=== PATIENT | female | born 1935 | race Caucasian/White ===

== ENCOUNTER 2017-03-20 18:22 | Emergency (ER) | payer MEDICARE, OTHER ==
[~2017-03-20] VITALS: Ht 165.1 cm; Wt 49.0 kg
[~2017-03-20 18:22] MED LIST: ACET325 PO; CALC.25 PO; CYAN1000I IM; ERGO50000 PO; ESTER C; FAMO20; FAMO20 PO; FLUT44OIA INH; FOLI400 PO; HYDSUL200 PO; IRON DEXTRAN IV; METO10 PO; NAPR375ER PO; OMEP40CA12 PO; ONDA4 PO; OXYACE5T PO; PROLIA60 MG/1 ML SQ; PYRI50 PO; SUCR1SU PO; TRIA80TC TOP; VENOFER20 MG/ML IV; [UNRECOGNIZED DRUG - OTHER]
[2017-03-20 19:46] LABS: BASOPHILS ABSOLUTE AUTO 0.03 K/mm3 (0.00-0.23); BASOPHILS PERCENT AUTO 1 % (0-2); EOSINOPHILS ABSOLUTE AUTO 0.11 K/mm3 (0.00-0.68); EOSINOPHILS PERCENT AUTO 2 % (0-6); Hematocrit 36.7 % (33.0-51.0); Hemoglobin 12.2 g/dL (11.5-16.0); IMMATURE GRAN ABSOLUTE AUTO 0.08 K/mm3 (0.00-0.10); IMMATURE GRAN PERCENT AUTO 1 % (0-1); LYMPHOCYTES ABSOLUTE AUTO 1.32 K/mm3 (0.84-5.20); LYMPHOCYTES PERCENT AUTO 21 % (21-46); MONOCYTES ABSOLUTE AUTO 0.47 K/mm3 (0.16-1.47); MONOCYTES PERCENT AUTO 7 % (4-13); Mean Corpuscular HGB 30.1 pg (26.0-34.0); Mean Corpuscular HGB Conc 33.2 g/dL (31.5-36.5); Mean Corpuscular Volume 91 fL (80-100); Mean Platelet Volume 10.7 fL (9.1-12.4); NEUTROPHILS ABSOLUTE AUTO 4.44 K/mm3 (1.96-9.15); NEUTROPHILS PERCENT AUTO 69 % (41-73); Platelet Count 306 K/mm3 (150-400); RDW Coefficient Variation 14.1 % (11.7-14.2); RDW Standard Deviation 46.5 fL (35.1-46.3); Red Blood Cell Count 4.05 M/mm3 (3.80-5.20); White Blood Cell Count 6.45 K/mm3 (4.00-11.30)
[2017-03-20 20:02] LABS: Alanine Aminotransfer (ALT/SGP 93 U/L (12-78); Albumin, Blood 2.6 g/dL (3.4-5.0); Alk Phos 183 U/L (50-136); Anion Gap 6 mmol/L (6-16); Aspartate Aminotrans (AST/SGOT 95 U/L (12-37); Bilirubin, Total 0.2 mg/dL (0.1-1.0); Blood Urea Nitrogen 11 mg/dL (8-24); CO2, Blood 26 mmol/L (21-32); Calcium, Blood 7.9 mg/dL (8.5-10.1); Chloride, Blood 108 mmol/L (98-108); Creatinine, Blood 0.55 mg/dL (0.40-1.00); Globulin, Blood 2.7 g/dL (2.2-4.0); Glomerular Filtration Rate >60 (60-); Glucose, Blood 96 mg/dL (70-99); Potassium, Blood 3.7 mmol/L (3.5-5.5); Sodium, Blood 140 mmol/L (136-145); Total Protein, Blood 5.3 g/dL (6.4-8.2)
[2017-03-21] MEDS ORDERED: Zofran Odt4 MG SL (01:59)
[2017-03-21 02:27] LABS: Source, Urine Clean Catch
[2017-03-21 02:30] LABS: Bilirubin, Urine Neg (Neg); Blood, Urine Neg (Neg); Glucose Qualitative, Urine Neg (Neg); Ketones, Urine Neg (Neg); Leukocyte Esterase, Urine Neg (Neg); Nitrite, Urine Neg (Neg); Protein, Urine Neg (Neg); Specific Gravity, Urine 1.015 (1.003-1.022); Urobilinogen, Urine NORM (Normal)
[2017-03-21 02:43] LABS: Appearance, Urine Clear (Clear); Color, Urine Yellow (P-Yellow)
== END 2017-03-21 02:51 | disposition home or self-care (01) ==
LOC: ER 18:22
PROVIDERS: Emergency Medicine
DX: T14.8XXA Other injury of unspecified body region, initial encounter (principal); D64.9 Anemia, unspecified; Z90.710 Acquired absence of both cervix and uterus; Z90.49 Acquired absence of other specified parts of digestive tract; W01.0XXA Fall on same level from slipping, tripping and stumbling without subsequent striking against object, initial encounter
CPT/HCPCS: 36415; 71046; 72070; 72100; 73562-LT; 80053; 81003; 84484; 85025; 93005; 93010; 96374; 99283; J2405

== ENCOUNTER → 2017-09-15 | Outpatient (CLI) | payer MEDICARE, OTHER ==
[~2017-09-15] MED LIST changes: +Zofran Odt4 MG SL
[2017-09-15 11:09] LABS: Calcium, Urine <5.0 mg/dL (2.0-17.5); Calcium, Urine Calculation Unable to Calculate mg/24hrs (42.0-353.0); Phosphorus, Urine 46.3 mg/dL (20.0-60.0)
== END | disposition home or self-care (01) ==
LOC: OLS 09:44 → LAB SHORT 09:44 → LAB FUT 09-13 16:05
PROVIDERS: Internal Medicine
DX: E83.51 Hypocalcemia (principal)
CPT/HCPCS: 81050; 82340; 84105

== ENCOUNTER → 2017-10-02 | Outpatient (CLI) | payer MEDICARE, OTHER | END | disposition home or self-care (01) | LOC: LAB 11:49 → LAB SHORT 11:49 | PROVIDERS: Nurse Practitioner Women's Health | DX: Z12.72 Encounter for screening for malignant neoplasm of vagina (principal); Z91.89 Other specified personal risk factors, not elsewhere classified | CPT/HCPCS: 87624; G0123 ==

== ENCOUNTER → 2018-10-03 | Outpatient (CLI) | payer MEDICARE, OTHER ==
[2018-10-04 15:07] LABS: HPV 16 Negative (Negative); HPV 18 Negative (Negative); HPV OTHER HR TYPES Negative (Negative)
== END | disposition home or self-care (01) ==
LOC: LAB 12:19 → LAB SHORT 12:19
PROVIDERS: Nurse Practitioner Women's Health
DX: Z12.72 Encounter for screening for malignant neoplasm of vagina (principal); Z91.89 Other specified personal risk factors, not elsewhere classified
CPT/HCPCS: 87624; G0123

== ENCOUNTER 2018-12-25 00:55 | Emergency (ER) | payer MEDICARE, OTHER ==
[~2018-12-25] VITALS: Ht 165.1 cm; Wt 49.9 kg
[2018-12-25 01:56] LABS: BASOPHILS ABSOLUTE AUTO 0.04 K/mm3 (0.00-0.23); BASOPHILS PERCENT AUTO 1 % (0-2); EOSINOPHILS ABSOLUTE AUTO 0.19 K/mm3 (0.00-0.68); EOSINOPHILS PERCENT AUTO 3 % (0-6); Hemoglobin 12.1 g/dL (11.5-16.0); IMMATURE GRAN ABSOLUTE AUTO 0.04 K/mm3 (0.00-0.10); IMMATURE GRAN PERCENT AUTO 1 % (0-1); LYMPHOCYTES ABSOLUTE AUTO 1.53 K/mm3 (0.84-5.20); LYMPHOCYTES PERCENT AUTO 22 % (21-46); MONOCYTES ABSOLUTE AUTO 0.98 K/mm3 (0.16-1.47); MONOCYTES PERCENT AUTO 14 % (4-13); Mean Platelet Volume 10.9 fL (9.1-12.4); NEUTROPHILS ABSOLUTE AUTO 4.23 K/mm3 (1.96-9.15); NEUTROPHILS PERCENT AUTO 60 % (41-73); Platelet Count 293 K/mm3 (150-400); White Blood Cell Count 7.01 K/mm3 (4.00-11.30)
[2018-12-25 02:01] LABS: Mean Corpuscular HGB Conc 32.7 g/dL (31.5-36.5); Mean Corpuscular Volume 95 fL (80-100)
[2018-12-25 02:06] LABS: Alanine Aminotransfer (ALT/SGP 54 U/L (12-78); Albumin, Blood 2.7 g/dL (3.4-5.0); Alk Phos 205 U/L (50-136); Anion Gap 5 mmol/L (6-16); Aspartate Aminotrans (AST/SGOT 51 U/L (12-37); Bilirubin, Total 0.2 mg/dL (0.1-1.0); Blood Urea Nitrogen 15 mg/dL (8-24); Bun/Creatinine Ratio 23.5 (12.0-20.0); CO2, Blood 23 mmol/L (21-32); Calcium, Blood 6.8 mg/dL (8.5-10.1); Chloride, Blood 115 mmol/L (98-108); Creatinine, Blood 0.64 mg/dL (0.40-1.00); Globulin, Blood 2.6 g/dL (2.2-4.0); Glomerular Filtration Rate >60 (60-); Glucose, Blood 103 mg/dL (70-99); Potassium, Blood 4.1 mmol/L (3.5-5.5); Sodium, Blood 143 mmol/L (136-145); Total Protein, Blood 5.3 g/dL (6.4-8.2); Troponin I <0.015 ng/mL (0.000-0.040)
== END 2018-12-25 03:30 | disposition home or self-care (01) ==
LOC: ER 00:55
PROVIDERS: Emergency Medicine
DX: R07.9 Chest pain, unspecified (principal); Z88.5 Allergy status to narcotic agent; Z79.899 Other long term (current) drug therapy
CPT/HCPCS: 36415; 71046; 80053; 84484; 85025; 93005; 93010; 99285-25

== ENCOUNTER 2019-04-30 15:48 | Inpatient (IN) | payer MEDICARE, OTHER ==
[~2019-04-30] VITALS: Ht 162.6 cm; Wt 41.3 kg
[2019-04-30] MEDS ORDERED: PANTOPRAZOLE SO40 M2 PO (15:59)
[2019-04-30] MEDS ORDERED: POTASSIUM CHLO10 MEQ PO (15:59)
[2019-04-30] MEDS ORDERED: TORS10 PO (15:59)
[2019-04-30 16:23] LABS: BASOPHILS ABSOLUTE AUTO 0.04 K/mm3 (0.00-0.23); BASOPHILS PERCENT AUTO 0 % (0-2); EOSINOPHILS ABSOLUTE AUTO 0.05 K/mm3 (0.00-0.68); EOSINOPHILS PERCENT AUTO 1 % (0-6); Hematocrit 34.9 % (33.0-51.0); Hemoglobin 11.3 g/dL (11.5-16.0); IMMATURE GRAN ABSOLUTE AUTO 0.04 K/mm3 (0.00-0.10); IMMATURE GRAN PERCENT AUTO 0 % (0-1); LYMPHOCYTES ABSOLUTE AUTO 1.01 K/mm3 (0.84-5.20); LYMPHOCYTES PERCENT AUTO 9 % (21-46); MONOCYTES ABSOLUTE AUTO 0.92 K/mm3 (0.16-1.47); MONOCYTES PERCENT AUTO 8 % (4-13); Mean Corpuscular HGB Conc 32.4 g/dL (31.5-36.5); Mean Corpuscular Volume 90 fL (80-100); Mean Platelet Volume 11.3 fL (9.1-12.4); NEUTROPHILS ABSOLUTE AUTO 8.96 K/mm3 (1.96-9.15); NEUTROPHILS PERCENT AUTO 81 % (41-73); Platelet Count 462 K/mm3 (150-400); RDW Standard Deviation 45.7 fL (35.1-46.3); Red Blood Cell Count 3.89 M/mm3 (3.80-5.20); White Blood Cell Count 11.02 K/mm3 (4.00-11.30)
[2019-04-30 16:44] LABS: Alanine Aminotransfer (ALT/SGP 63 U/L (12-78); Albumin, Blood 2.9 g/dL (3.4-5.0); Albumin/Globulin Ratio 0.9 (0.8-1.8); Alk Phos 197 U/L (50-136); Anion Gap 6 mmol/L (6-16); Aspartate Aminotrans (AST/SGOT 74 U/L (12-37); Bilirubin, Total 0.4 mg/dL (0.1-1.0); Blood Urea Nitrogen 19 mg/dL (8-24); Bun/Creatinine Ratio 31.2 (12.0-20.0); CO2, Blood 28 mmol/L (21-32); Calcium, Blood 8.4 mg/dL (8.5-10.1); Chloride, Blood 101 mmol/L (98-108); Creatinine, Blood 0.61 mg/dL (0.40-1.00); Globulin, Blood 3.1 g/dL (2.2-4.0); Glomerular Filtration Rate >60 (60-); Glucose, Blood 156 mg/dL (70-99); Potassium, Blood 3.6 mmol/L (3.5-5.5); Sodium, Blood 135 mmol/L (136-145)
[2019-04-30 21:47] LABS: Source, Urine Clean Catch
[2019-04-30 21:51] LABS: Bilirubin, Urine Neg (Neg); Blood, Urine Neg (Neg); Glucose Qualitative, Urine Neg (Neg); Ketones, Urine Neg (Neg); Leukocyte Esterase, Urine Neg (Neg); Nitrite, Urine Neg (Neg); Protein, Urine 2+ (Neg); Urobilinogen, Urine NORM (Normal)
[2019-04-30 22:00] LABS: Appearance, Urine Clear (Clear); Bacteria Mod /hpf; Color, Urine Yellow (P-Yellow); Red Blood Cells, Urine Not Seen /hpf (0-2); Squamous Epithelial Cells Few /hpf (Few); White Blood Cells, Urine 0-2 /hpf (0-5)
[2019-05-01] MEDS ORDERED: PANT40 PO (01:23)
[2019-05-01 04:13] LABS: BASOPHILS ABSOLUTE AUTO 0.03 K/mm3 (0.00-0.23); BASOPHILS PERCENT AUTO 0 % (0-2); EOSINOPHILS PERCENT AUTO 1 % (0-6); Hematocrit 30.1 % (33.0-51.0); Hemoglobin 9.9 g/dL (11.5-16.0); IMMATURE GRAN ABSOLUTE AUTO 0.04 K/mm3 (0.00-0.10); IMMATURE GRAN PERCENT AUTO 0 % (0-1); LYMPHOCYTES ABSOLUTE AUTO 1.41 K/mm3 (0.84-5.20); LYMPHOCYTES PERCENT AUTO 15 % (21-46); MONOCYTES PERCENT AUTO 13 % (4-13); Mean Corpuscular HGB 29.5 pg (26.0-34.0); Mean Corpuscular HGB Conc 32.9 g/dL (31.5-36.5); Mean Corpuscular Volume 90 fL (80-100); Mean Platelet Volume 11.5 fL (9.1-12.4); NEUTROPHILS ABSOLUTE AUTO 6.62 K/mm3 (1.96-9.15); NEUTROPHILS PERCENT AUTO 70 % (41-73); Platelet Count 353 K/mm3 (150-400); RDW Coefficient Variation 14.1 % (11.7-14.2); RDW Standard Deviation 45.2 fL (35.1-46.3); Red Blood Cell Count 3.36 M/mm3 (3.80-5.20)
[2019-05-01 04:32] LABS: Alanine Aminotransfer (ALT/SGP 48 U/L (12-78); Albumin, Blood 2.1 g/dL (3.4-5.0); Albumin/Globulin Ratio 0.8 (0.8-1.8); Alk Phos 153 U/L (50-136); Anion Gap 4 mmol/L (6-16); Aspartate Aminotrans (AST/SGOT 69 U/L (12-37); Bilirubin, Total 0.4 mg/dL (0.1-1.0); Blood Urea Nitrogen 20 mg/dL (8-24); Bun/Creatinine Ratio 23.6 (12.0-20.0); CO2, Blood 27 mmol/L (21-32); Calcium, Blood 7.8 mg/dL (8.5-10.1); Chloride, Blood 108 mmol/L (98-108); Creatinine, Blood 0.85 mg/dL (0.40-1.00); Globulin, Blood 2.6 g/dL (2.2-4.0); Glomerular Filtration Rate >60 (60-); Glucose, Blood 102 mg/dL (70-99); Potassium, Blood 4.2 mmol/L (3.5-5.5); Sodium, Blood 139 mmol/L (136-145); Total Protein, Blood 4.7 g/dL (6.4-8.2)
--- NOTE | 2019-05-01 06:07 | NUR ---
SHIFT SUMMARY PT ER ADMIT THIS SHIFT FOR PANCREATITIS. PT IS A/OX4, VITALS ARE STABLE. SHE REPORTS SOME SORENESS IN HER ABD FROM VOMITTING BUT REPORTS HER PAIN AT A 3 (0-10) AND SHE REPORTS THAT IT IS MANAGEBLE. PT HAS HAD NO VOMITTING SINCE ARRIVING TO THE UNIT. INTERMITTENT NAUSEA THAT IS RELIEVED WITH ZOFRAN. PT IS STEADY ON HER FEET AND IS A SBA. PLAN IS FOR MCRP AND POSSIBLE COBRA TRANSFER IF ERCP IS NEEDED FOR BILILARY STONE. PT NPO. ADMISSION COMPLETE. BED IN LOWEST POSITION. CALL LIGHT WITHIN REACH. WILL CONTINUE TO MONITOR AND REPORT TO ONCOMING RN.
--- NOTE | 2019-05-01 15:56 | NUR ---
SHIFT SUMMARY - TRANSFER NOTE PT A&Ox4; FORGETFUL AT TIMES. BED ALARM IN PLACE, PT FAMILY REPORTS THAT SHE HAS BEEN GETTING UP TO BATHROOM ON HER OWN, PT EDUCATED ON FALL RISK AND TO CALL FOR ASSISTANCE. PT DENIES PAIN, CHEST PAIN/PRESSURE, SOB, NAUSEA AND DIZZINESS T/O SHIFT. PT HAS BEEN GIVEN WATER, EDUCATED PT ON TAKING SMALL SIPS, APPEARS TO BE TOLERATING WELL. BLE 2+ PITTING EDEMA NOTED, CAITLYN ALVAREZ APLIED PER ORDERS. PT RECEIVING IV FLUIDS NS AT 50ML/HR. VSS. NO OTHER ACUTE CHANGES NOTED DURING SHIFT. PT TRANSFERING TO ROOM 308, REPORT GIVEN TO BLU Lechuga RN VIA TELEPHONE.
--- NOTE | 2019-05-01 16:30 | NUR ---
TRANSFER: PT TRANSFER TO ROOM 308 FROM PCU 16. PT A+O. FAMILY AT BEDSIDE. PT 1 ASSIST OOB. BED ALARM ON FOR SAFETY. WARM BLANKETS FOR COMFORT. PT SIPPING ON CLEAR LIQUIDS. DENIES PAIN OR NAUSEA. IV INFUSING. VSS. CALL LIGHT PLACED IN REACH.
--- NOTE | 2019-05-01 18:00 | NUR ---
PT HAS BEEN STABLE SINCE TRANSFER TO MEDICAL FLOOR. PT HAS DENIED PAIN AND NAUSEA. TOLERATING SIPS CLEARS. VOIDING WELL. SBA OOB NEEDED. BED ALARM ON FOR SAFETY. IV INFUSING. CAITLYN HOSE TO BLE FOR +3 EDEMA IN LEGS. PT USES CALL LIGHT APPROPRIATELY FOR THIS RN.
[2019-05-02 04:50] LABS: BASOPHILS ABSOLUTE AUTO 0.03 K/mm3 (0.00-0.23); BASOPHILS PERCENT AUTO 0 % (0-2); EOSINOPHILS ABSOLUTE AUTO 0.17 K/mm3 (0.00-0.68); EOSINOPHILS PERCENT AUTO 2 % (0-6); Hematocrit 29.1 % (33.0-51.0); Hemoglobin 9.6 g/dL (11.5-16.0); IMMATURE GRAN ABSOLUTE AUTO 0.05 K/mm3 (0.00-0.10); IMMATURE GRAN PERCENT AUTO 1 % (0-1); LYMPHOCYTES PERCENT AUTO 10 % (21-46); MONOCYTES PERCENT AUTO 15 % (4-13); Mean Corpuscular HGB 29.3 pg (26.0-34.0); Mean Corpuscular Volume 89 fL (80-100); Mean Platelet Volume 11.6 fL (9.1-12.4); NEUTROPHILS PERCENT AUTO 73 % (41-73); Platelet Count 351 K/mm3 (150-400); RDW Standard Deviation 45.5 fL (35.1-46.3); Red Blood Cell Count 3.28 M/mm3 (3.80-5.20); White Blood Cell Count 9.65 K/mm3 (4.00-11.30)
--- NOTE | 2019-05-02 04:56 | NUR ---
NOC SHIFT SUMMARY PT IS PLEASANT AND COOPERATIVE WITH CARE. AAOX4, RESP EVEN AND UNLABORED. TREATED FOR ABD PAIN ONCE THIS NIGHT PER EMAR TO GOOD EFFECT. PT WAS ABLE TO GO TO SLEEP AND HAS SLEPT MUCH OF THE NIGHT. NO FURTHER COMPLAINTS OF PAIN OR DISCOMFORT. VSS. PRESENTLY SLEEPING AND APPEARS IN NO ACUTE DISTRESS. WILL CONTINUE TO MONITOR.
[2019-05-02 07:46] LABS: Calcium, Blood 7.6 mg/dL (8.5-10.1); Magnesium, Blood 1.8 mg/dL (1.6-2.4); Phosphorus, Blood 3.6 mg/dL (2.5-4.9)
--- NOTE | 2019-05-02 11:15 | NUR ---
L AC IV REMOVED 20G IV TO THE L AC REMOVED AT 1100 DUE TO LEAKAGE.
--- NOTE | 2019-05-02 16:39 | NUR ---
SHIFT SUMMARY PT TOLERATED CLEAR LIQUID DIET AND ADVANCED TO FULL LIQUID. PT GIVEN NEW IV THIS SHIFT. TOLERATING 50ML/HR OF NS AT THIS TIME. PT STATES PAIN HAS IMPROVED SINCE ADMISSION. ONLY REPORTS PAIN ON [place]. DENIES NEED FOR PAIN MEDS AT THIS TIME. NO OTHER CHANGES IN ASSESSMENT AT THIS TIME. VSS. WILL CONTINUE TO MONITOR UNTIL TURNOVER IS COMPLETE.
--- NOTE | 2019-05-02 17:52 | NUR ---
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 She has a onrbert zita and feels well loved and supported by friends. Spouse passed quite a while ago and she has managed well on her own. She understands her illness and beleives she is improving. No concerns presented. Evelyn responded well to companionship and theraputic listening. We prayed together for continued healing and she expressed gratitude for God's presence in her life. She expects to be discharged in a day or two. [employer] services will remain available.
--- NOTE | 2019-05-03 00:09 | NUR ---
HELPED PT UP TO TOILET. BACK IN BED NOW WITH CPAP ON SATTING MID 'S
--- NOTE | 2019-05-03 03:13 | NUR ---
NOC SHIFT SUMMARY PT IS PLEASANT AND COOPERATIVE WITH CARE. UP TO RESTROOM TO VOID MULTIPLE TIMES THIS NIGHT. 1 ASSIST SHE IS A BIT UNSTEADY ON HER FEET. AAOX4. CONTINENT OF BOWEL AND BLADDER. COMPLAINED OF NAUSEA AND STOMACH DISCOMFORT ONCE THIS NIGHT. TREATED PER EMAR TO GOOD EFFECT. AT THIS TIME SHE IS BACK IN BED WITH CPAP AND CONT PULSE OX ON. APPEARS IN NO ACUTE DISTRESS AND VOICES NO NEEDS. WILL CONTINUE TO MONITOR.
[2019-05-03 05:10] LABS: BASOPHILS ABSOLUTE AUTO 0.03 K/mm3 (0.00-0.23); BASOPHILS PERCENT AUTO 0 % (0-2); EOSINOPHILS ABSOLUTE AUTO 0.24 K/mm3 (0.00-0.68); EOSINOPHILS PERCENT AUTO 3 % (0-6); Hematocrit 28.2 % (33.0-51.0); Hemoglobin 9.1 g/dL (11.5-16.0); IMMATURE GRAN ABSOLUTE AUTO 0.05 K/mm3 (0.00-0.10); IMMATURE GRAN PERCENT AUTO 1 % (0-1); LYMPHOCYTES ABSOLUTE AUTO 1.03 K/mm3 (0.84-5.20); LYMPHOCYTES PERCENT AUTO 13 % (21-46); MONOCYTES ABSOLUTE AUTO 1.21 K/mm3 (0.16-1.47); MONOCYTES PERCENT AUTO 15 % (4-13); Mean Corpuscular HGB 28.6 pg (26.0-34.0); Mean Corpuscular HGB Conc 32.3 g/dL (31.5-36.5); Mean Corpuscular Volume 89 fL (80-100); Mean Platelet Volume 11.4 fL (9.1-12.4); NEUTROPHILS ABSOLUTE AUTO 5.38 K/mm3 (1.96-9.15); NEUTROPHILS PERCENT AUTO 68 % (41-73); Platelet Count 330 K/mm3 (150-400); RDW Coefficient Variation 14.1 % (11.7-14.2); RDW Standard Deviation 45.5 fL (35.1-46.3); Red Blood Cell Count 3.18 M/mm3 (3.80-5.20); White Blood Cell Count 7.94 K/mm3 (4.00-11.30)
[2019-05-03 05:24] LABS: Anion Gap 7 mmol/L (6-16); Blood Urea Nitrogen 15 mg/dL (8-24); Bun/Creatinine Ratio 23.4 (12.0-20.0); CO2, Blood 25 mmol/L (21-32); Calcium, Blood 7.8 mg/dL (8.5-10.1); Chloride, Blood 107 mmol/L (98-108); Creatinine, Blood 0.64 mg/dL (0.40-1.00); Glomerular Filtration Rate >60 (60-); Glucose, Blood 89 mg/dL (70-99); Magnesium, Blood 1.8 mg/dL (1.6-2.4); Phosphorus, Blood 3.3 mg/dL (2.5-4.9); Potassium, Blood 3.9 mmol/L (3.5-5.5); Sodium, Blood 139 mmol/L (136-145)
[2019-05-03] MEDS ORDERED: ONDA4ODT MM (10:10)
--- NOTE | 2019-05-03 11:06 | NUR ---
PT DISCHARGED. PT DISCHARGED AT 1100. PT IN STABLE CONDITION. DENIES ABD PAIN & TOLERATED SOFT FOODS WELL THIS AM. NO CHANGES IN ASSESSMENT PRIOR TO DC. PT & SISTER EDUCATED ON DC INSTRUCTIONS AND GIVEN [facility] NEW PATIENT PACKET SO THAT PT CAN GET A PCP ESTABLISHED. PT WHEELED OUT BY JAMAL AND TO BE DRIVEN HOME BY SISTER.
== END 2019-05-03 11:07 | disposition home or self-care (01) | DRG 439 ==
LOC: ER 15:48 → PCU 22:30 → ERHOLD 22:30 → MEDS 22:30 → PCU 05-01 00:54 → MEDS 05-01 16:23 → ENPENDDIS 05-03 09:55 → MEDS 05-03 11:07
PROVIDERS: Hospitalist; Internal Medicine; Nurse Practitioner Acute Care; Physician Assistant; ADMIT Hospitalist
DX: K85.90 Acute pancreatitis without necrosis or infection, unspecified (principal); K80.51 Calculus of bile duct without cholangitis or cholecystitis with obstruction; G47.33 Obstructive sleep apnea (adult) (pediatric); K21.9 Gastro-esophageal reflux disease without esophagitis; M06.9 Rheumatoid arthritis, unspecified; M81.0 Age-related osteoporosis without current pathological fracture; R60.0 Localized edema; K90.0 Celiac disease; K22.2 Esophageal obstruction; Z86.73 Personal history of transient ischemic attack (TIA), and cerebral infarction without residual deficits; Z87.11 Personal history of peptic ulcer disease; Z88.5 Allergy status to narcotic agent
CPT/HCPCS: 36415; 74022; 74181; 76705; 80048; 80053; 81001; 82310; 83690; 83735; 84100; 85025; 87077; 87086; 87186; 93005; 93010; 94762; 96361; 96374; 96375; 99285-25; J1885; J2405; J2765; J7030

== ENCOUNTER 2019-10-17 13:01 | Observation (INO) | payer MEDICARE, OTHER ==
[~2019-10-17] VITALS: Ht 165.1 cm; Wt 55.8 kg
[~2019-10-17 13:01] MED LIST changes: +ONDA4ODT MM; +PANT40 PO; +POTASSIUM CHLO10 MEQ PO
[2019-10-17 13:53] LABS: BASOPHILS ABSOLUTE AUTO 0.05 K/mm3 (0.00-0.23); BASOPHILS PERCENT AUTO 1 % (0-2); EOSINOPHILS PERCENT AUTO 3 % (0-6); Hematocrit 35.7 % (33.0-51.0); Hemoglobin 11.6 g/dL (11.5-16.0); IMMATURE GRAN ABSOLUTE AUTO 0.04 K/mm3 (0.00-0.10); IMMATURE GRAN PERCENT AUTO 1 % (0-1); LYMPHOCYTES ABSOLUTE AUTO 1.32 K/mm3 (0.84-5.20); LYMPHOCYTES PERCENT AUTO 17 % (21-46); MONOCYTES ABSOLUTE AUTO 1.02 K/mm3 (0.16-1.47); MONOCYTES PERCENT AUTO 14 % (4-13); Mean Corpuscular HGB 31.3 pg (26.0-34.0); Mean Corpuscular HGB Conc 32.5 g/dL (31.5-36.5); Mean Corpuscular Volume 96 fL (80-100); Mean Platelet Volume 10.4 fL (9.1-12.4); NEUTROPHILS ABSOLUTE AUTO 4.95 K/mm3 (1.96-9.15); NEUTROPHILS PERCENT AUTO 65 % (41-73); Platelet Count 325 K/mm3 (150-400); RDW Coefficient Variation 13.4 % (11.7-14.2); RDW Standard Deviation 47.9 fL (35.1-46.3); Red Blood Cell Count 3.71 M/mm3 (3.80-5.20); White Blood Cell Count 7.58 K/mm3 (4.00-11.30)
[2019-10-17 14:01] LABS: Source, Urine Clean Catch
[2019-10-17 14:02] LABS: Bilirubin, Urine Neg (Neg); Blood, Urine Neg (Neg); Glucose Qualitative, Urine Neg (Neg); Ketones, Urine Neg (Neg); Leukocyte Esterase, Urine 1+ (Neg); Nitrite, Urine Pos (Neg); Protein, Urine Neg (Neg); Specific Gravity, Urine 1.015 (1.003-1.022); Urobilinogen, Urine NORM (Normal)
[2019-10-17 14:11] LABS: Appearance, Urine Clear (Clear); Color, Urine Yellow (P-Yellow)
[2019-10-17 14:12] LABS: Bacteria Many /hpf; Red Blood Cells, Urine 0-2 /hpf (0-2); Squamous Epithelial Cells Rare /hpf (Few)
[2019-10-17 14:17] LABS: Alanine Aminotransfer (ALT/SGP 32 U/L (12-78); Albumin, Blood 2.9 g/dL (3.4-5.0); Alk Phos 123 U/L (50-136); Anion Gap 7 mmol/L (6-16); Aspartate Aminotrans (AST/SGOT 34 U/L (12-37); Bilirubin, Total 0.2 mg/dL (0.1-1.0); Blood Urea Nitrogen 20 mg/dL (8-24); Bun/Creatinine Ratio 33.2 (12.0-20.0); CO2, Blood 25 mmol/L (21-32); Calcium, Blood 8.1 mg/dL (8.5-10.1); Chloride, Blood 107 mmol/L (98-108); Glomerular Filtration Rate >60 (60-); Glucose, Blood 89 mg/dL (70-99); Potassium, Blood 4.2 mmol/L (3.5-5.5); Sodium, Blood 139 mmol/L (136-145); Total Protein, Blood 5.9 g/dL (6.4-8.2); Troponin I <0.015 ng/mL (0.000-0.040)
[2019-10-17] MEDS ORDERED: CYAN1000I SC (16:03)
[2019-10-17] MEDS ORDERED: PANTOPRAZOLE SO40 M2 PO (16:05)
[2019-10-17] MEDS ORDERED: FOLI1 PO (16:06)
[2019-10-17] MEDS ORDERED: CALC.25 PO (16:07)
[2019-10-17] MEDS ORDERED: TORS10 PO (16:07)
[2019-10-17] MEDS ORDERED: Vitamin D2000 UNIT PO (16:25)
[2019-10-17] MEDS ORDERED: TRIA15CR3 TOP (16:26)
[2019-10-17] MEDS ORDERED: CALCIUM PO (16:31)
[2019-10-17] MEDS ORDERED: [UNRECOGNIZED DRUG - OTHER] PO (16:31)
[2019-10-17] MEDS ORDERED: CALCIUM CITRAT PO (16:33)
--- NOTE | 2019-10-17 17:51 | NUR ---
RECEIVED REPORT FROM THIERRY NUÑEZ RN, AT 1750. PATIENT TO BE TRANSFERED TO ROOM 362.
--- NOTE | 2019-10-17 22:46 | NUR ---
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 2114 RT--MAGNO AT SIDE AND SET UP PTS BIPAP AND BIOX; DENIES PAIN OR NAUSEA.
[2019-10-18 02:03] LABS: BASOPHILS ABSOLUTE AUTO 0.06 K/mm3 (0.00-0.23); BASOPHILS PERCENT AUTO 1 % (0-2); EOSINOPHILS ABSOLUTE AUTO 0.29 K/mm3 (0.00-0.68); EOSINOPHILS PERCENT AUTO 4 % (0-6); Hematocrit 36.7 % (33.0-51.0); IMMATURE GRAN ABSOLUTE AUTO 0.07 K/mm3 (0.00-0.10); IMMATURE GRAN PERCENT AUTO 1 % (0-1); LYMPHOCYTES ABSOLUTE AUTO 2.23 K/mm3 (0.84-5.20); LYMPHOCYTES PERCENT AUTO 27 % (21-46); MONOCYTES ABSOLUTE AUTO 1.06 K/mm3 (0.16-1.47); MONOCYTES PERCENT AUTO 13 % (4-13); Mean Corpuscular HGB 31.6 pg (26.0-34.0); Mean Corpuscular HGB Conc 32.7 g/dL (31.5-36.5); Mean Corpuscular Volume 97 fL (80-100); NEUTROPHILS ABSOLUTE AUTO 4.49 K/mm3 (1.96-9.15); NEUTROPHILS PERCENT AUTO 55 % (41-73); Platelet Count 316 K/mm3 (150-400); RDW Coefficient Variation 13.3 % (11.7-14.2); RDW Standard Deviation 47.5 fL (35.1-46.3)
[2019-10-18 02:16] LABS: Alanine Aminotransfer (ALT/SGP 25 U/L (12-78); Albumin, Blood 2.9 g/dL (3.4-5.0); Alk Phos 97 U/L (50-136); Anion Gap 4 mmol/L (6-16); Aspartate Aminotrans (AST/SGOT 27 U/L (12-37); Bilirubin, Total 0.3 mg/dL (0.1-1.0); Blood Urea Nitrogen 16 mg/dL (8-24); Bun/Creatinine Ratio 23.3 (12.0-20.0); CO2, Blood 30 mmol/L (21-32); Calcium, Blood 8.2 mg/dL (8.5-10.1); Chloride, Blood 107 mmol/L (98-108); Creatinine, Blood 0.69 mg/dL (0.40-1.00); Globulin, Blood 2.8 g/dL (2.2-4.0); Glomerular Filtration Rate >60 (60-); Glucose, Blood 101 mg/dL (70-99); Potassium, Blood 4.1 mmol/L (3.5-5.5); Sodium, Blood 141 mmol/L (136-145); Total Protein, Blood 5.7 g/dL (6.4-8.2); Troponin I <0.015 ng/mL (0.000-0.040)
--- NOTE | 2019-10-18 04:35 | NUR ---
SHIFT SUMMARY: 83 Y/O FEMALE RESTED COMFORTABLY ALL SHIFT; DENIES PAIN OR NAUSEA; WEARING BIPAP ALL SHIFT; ALERT AND ORIENTED X 4; BED LOW POSITION WITH CALL LIGHT AT SIDE.
--- NOTE | 2019-10-18 08:30 | NUR ---
PT PLEASANT COOP A/O. STATES SOME H/ACHE, WILL MED PER EMAR. 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 STATES NO CHEST PN, DISCOMFORT EXCEPT HEADACHE. H/R REG, MURMER NOTED. PER TELE. NSR AT 76, LUNGS CLEAR, RESP EASY, UNLABORED. ON R/A. BT X4 LAST BM YEST. VOIDS SBA TO BATHROOM. BED IN LOW POSITION, CALL LITE IN REACH, CALLS APPROP
--- NOTE | 2019-10-18 12:25 | NUR ---
DR SUBHASH CHAPIN ASKED TO [facility] FOR 7 DAYS. CALLED [facility] TO FAX. SHE TO DO. SPOKE TO H/C PERSON PLACING PATCH. ADVISED.
--- NOTE | 2019-10-18 13:51 | NUR ---
Upon receiving an admit referral for spiritual care, I visit patient. Patient's sister Ladi is bedside. Patient tells me about her medical issues, her family and career history and about her restorationism tradition (Orthodoxy). Patient tell me that she is in the DC process. No spiritual distress is detected but patient is clearly encouraged by conversations centered around her zita. I listen empathically and povide prayer. Patient and sister respond well and show signs of an elevated mood.
[2019-10-18] MEDS ORDERED: CIPR500 PO (14:25)
--- NOTE | 2019-10-18 15:07 | NUR ---
DISCHARGE REVIEWD WITH PT AND SISTER. PT VERBALIZED UNDERSTANDING MEDS AND INST. HAS BEEN EDUCATED ON ZIOPATCH PER H/CTR. IV PULLED INTACT. TELE REMOVED. PT DRESSING SELF
--- NOTE | 2019-10-18 15:08 | NUR ---
PT STATES WHILE SITTING UP IS SOME DIZZY. VS 138/81 P 76, LAST TELE WAS NS AT 76. TELE JUST RETURNED. PT STATES IS OKAY. BUT CALLING DR CRAMER TO CHECK.
--- NOTE | 2019-10-18 15:48 | NUR ---
SPOKE TO DR BONDS. STARKEY TO Robbin Mike WHEELED PT TO DOOR AT 1540. ASSISTED TO AUTO.
== END 2019-10-18 15:01 | disposition home or self-care (01) ==
LOC: ER 13:01 → MEDS 13:02
PROVIDERS: Emergency Medicine; ADMIT Family Medicine
DX: R00.2 Palpitations (principal); R42 Dizziness and giddiness; I10 Essential (primary) hypertension; K21.9 Gastro-esophageal reflux disease without esophagitis; G47.33 Obstructive sleep apnea (adult) (pediatric); Z88.5 Allergy status to narcotic agent
CPT/HCPCS: 36415; 71046; 80053; 81001; 83880; 84484; 85025; 87077; 87086; 87186; 93005; 93010; 93308; 94762; 96372; 96374; 99285-25; A9270; A9270-GY; G0378; J1650; J7030

== ENCOUNTER → 2020-02-11 | Outpatient (CLI) | payer MEDICARE, OTHER ==
[~2020-02-11] MED LIST changes: +ACET325; +CALCIUM CITRAT PO; +CALCIUM PO; +CIPR500 PO; +CYAN1000I SC; +FOLI1 PO; +METOPROLOL SUCC25 MG PO; +Nitrostat0.4 MG SL; +PANTOPRAZOLE SO40 M2 PO; +Pepcid20 MG PO; +TORS10 PO; +TRIA15CR3 TOP; +Vitamin D2000 UNIT PO; +[UNRECOGNIZED DRUG - OTHER] PO
[2020-02-12 18:35] LABS: CORONAVIRUS (COVID19) CSH-NRL Negative (Negative)
== END | disposition home or self-care (01) ==
LOC: LAB SHORT 09:44 → LAB UCHC 09:44
PROVIDERS: Physician Assistant
DX: Z20.828 Contact with and (suspected) exposure to other viral communicable diseases (principal)
CPT/HCPCS: U0003

== ENCOUNTER 2020-02-25 03:36 | Emergency (ER) | payer MEDICARE, OTHER ==
[~2020-02-25] VITALS: Ht 165.1 cm; Wt 55.3 kg
[~2020-02-25 03:36] MED LIST changes: -ACET325; -METOPROLOL SUCC25 MG PO; -Nitrostat0.4 MG SL; -Pepcid20 MG PO
[2020-02-25 04:02] LABS: BASOPHILS ABSOLUTE AUTO 0.06 K/mm3 (0.00-0.23); BASOPHILS PERCENT AUTO 1 % (0-2); EOSINOPHILS ABSOLUTE AUTO 0.29 K/mm3 (0.00-0.68); EOSINOPHILS PERCENT AUTO 4 % (0-6); Hematocrit 37.5 % (33.0-51.0); Hemoglobin 12.1 g/dL (11.5-16.0); IMMATURE GRAN ABSOLUTE AUTO 0.06 K/mm3 (0.00-0.10); IMMATURE GRAN PERCENT AUTO 1 % (0-1); LYMPHOCYTES ABSOLUTE AUTO 1.97 K/mm3 (0.84-5.20); LYMPHOCYTES PERCENT AUTO 25 % (21-46); MONOCYTES ABSOLUTE AUTO 1.21 K/mm3 (0.16-1.47); MONOCYTES PERCENT AUTO 15 % (4-13); Mean Corpuscular HGB 31.4 pg (26.0-34.0); Mean Corpuscular HGB Conc 32.3 g/dL (31.5-36.5); Mean Corpuscular Volume 97 fL (80-100); Mean Platelet Volume 10.7 fL (9.1-12.4); NEUTROPHILS ABSOLUTE AUTO 4.36 K/mm3 (1.96-9.15); NEUTROPHILS PERCENT AUTO 55 % (41-73); Platelet Count 287 K/mm3 (150-400); RDW Coefficient Variation 15.1 % (11.7-14.2); RDW Standard Deviation 54.9 fL (35.1-46.3); Red Blood Cell Count 3.85 M/mm3 (3.80-5.20); White Blood Cell Count 7.95 K/mm3 (4.00-11.30)
[2020-02-25] MEDS ORDERED: ACET325 (04:13)
[2020-02-25] MEDS ORDERED: METOPROLOL SUCC25 MG PO (04:13)
[2020-02-25 04:25] LABS: Alanine Aminotransfer (ALT/SGP 27 U/L (12-78); Albumin, Blood 3.1 g/dL (3.4-5.0); Alk Phos 130 U/L (50-136); Anion Gap 6 mmol/L (6-16); Aspartate Aminotrans (AST/SGOT 24 U/L (12-37); Bilirubin, Total 0.2 mg/dL (0.1-1.0); Blood Urea Nitrogen 15 mg/dL (8-24); Bun/Creatinine Ratio 23.8 (12.0-20.0); CO2, Blood 29 mmol/L (21-32); Calcium, Blood 8.5 mg/dL (8.5-10.1); Chloride, Blood 103 mmol/L (98-108); Creatinine, Blood 0.63 mg/dL (0.40-1.00); Globulin, Blood 3.1 g/dL (2.2-4.0); Glomerular Filtration Rate >60 (60-); Glucose, Blood 96 mg/dL (70-99); Potassium, Blood 4.3 mmol/L (3.5-5.5); Sodium, Blood 138 mmol/L (136-145); Total Protein, Blood 6.2 g/dL (6.4-8.2); Troponin I <0.015 ng/mL (0.000-0.040)
[2020-02-25] MEDS ORDERED: Nitrostat0.4 MG SL (08:08)
[2020-02-25] MEDS ORDERED: Pepcid20 MG PO (08:08)
== END 2020-02-25 09:15 | disposition home or self-care (01) ==
LOC: ER 03:36
PROVIDERS: Emergency Medicine
DX: R07.89 Other chest pain (principal); R06.02 Shortness of breath; Z88.5 Allergy status to narcotic agent; Z91.02 Food additives allergy status; Z79.899 Other long term (current) drug therapy
CPT/HCPCS: 36415; 71046; 80053; 83690; 83880; 84484; 85025; 93005; 93010; 99285-25

== ENCOUNTER 2020-06-16 03:38 | Emergency (ER) | payer MEDICARE, OTHER ==
[~2020-06-16] VITALS: Ht 165.1 cm; Wt 54.4 kg
[~2020-06-16 03:38] MED LIST changes: +ACET325; +METOPROLOL SUCC25 MG PO; +Nitrostat0.4 MG SL; +Pepcid20 MG PO
[2020-06-16 04:50] LABS: BASOPHILS ABSOLUTE AUTO 0.04 K/mm3 (0.00-0.23); BASOPHILS PERCENT AUTO 1 % (0-2); EOSINOPHILS ABSOLUTE AUTO 0.19 K/mm3 (0.00-0.68); EOSINOPHILS PERCENT AUTO 2 % (0-6); Hematocrit 31.2 % (33.0-51.0); Hemoglobin 10.6 g/dL (11.5-16.0); IMMATURE GRAN ABSOLUTE AUTO 0.03 K/mm3 (0.00-0.10); IMMATURE GRAN PERCENT AUTO 0 % (0-1); LYMPHOCYTES PERCENT AUTO 15 % (21-46); MONOCYTES ABSOLUTE AUTO 1.13 K/mm3 (0.16-1.47); MONOCYTES PERCENT AUTO 13 % (4-13); Mean Corpuscular HGB 30.8 pg (26.0-34.0); Mean Corpuscular Volume 91 fL (80-100); Mean Platelet Volume 10.5 fL (9.1-12.4); NEUTROPHILS ABSOLUTE AUTO 5.73 K/mm3 (1.96-9.15); NEUTROPHILS PERCENT AUTO 68 % (41-73); Platelet Count 346 K/mm3 (150-400); RDW Coefficient Variation 14.7 % (11.7-14.2); RDW Standard Deviation 48.5 fL (35.1-46.3); Red Blood Cell Count 3.44 M/mm3 (3.80-5.20); White Blood Cell Count 8.42 K/mm3 (4.00-11.30)
[2020-06-16 05:09] LABS: Alanine Aminotransfer (ALT/SGP 39 U/L (12-78); Albumin, Blood 2.6 g/dL (3.4-5.0); Albumin/Globulin Ratio 0.9 (0.8-1.8); Alk Phos 170 U/L (50-136); Anion Gap 5 mmol/L (6-16); Aspartate Aminotrans (AST/SGOT 44 U/L (12-37); Bilirubin, Total 0.3 mg/dL (0.1-1.0); Blood Urea Nitrogen 7 mg/dL (8-24); Bun/Creatinine Ratio 14.2 (12.0-20.0); C-Reactive Protein, High Sens. 0.219 mg/L (0.000-3.000); CO2, Blood 28 mmol/L (21-32); Chloride, Blood 102 mmol/L (98-108); Creatinine, Blood 0.49 mg/dL (0.40-1.00); Globulin, Blood 2.9 g/dL (2.2-4.0); Glomerular Filtration Rate >60 (60-); Glucose, Blood 104 mg/dL (70-99); Potassium, Blood 4.1 mmol/L (3.5-5.5); Sodium, Blood 135 mmol/L (136-145); Total Protein, Blood 5.5 g/dL (6.4-8.2)
== END 2020-06-16 05:54 | disposition home or self-care (01) ==
LOC: ER 03:38
PROVIDERS: Emergency Medicine
DX: M25.011 Hemarthrosis, right shoulder (principal); Z79.899 Other long term (current) drug therapy; Z88.5 Allergy status to narcotic agent; Z88.8 Allergy status to other drugs, medicaments and biological substances; Z74.09 Other reduced mobility
CPT/HCPCS: 36415; 73030; 80053; 85025; 85651; 86141; 96374; 96375; 99283-25; A9270; J2405; J3010

== ENCOUNTER 2020-08-08 17:29 | Emergency (ER) | payer MEDICARE, OTHER ==
[~2020-08-08] VITALS: Ht 165.1 cm; Wt 59.0 kg
[2020-08-08 18:19] LABS: BASOPHILS ABSOLUTE AUTO 0.05 K/mm3 (0.00-0.23); BASOPHILS PERCENT AUTO 1 % (0-2); EOSINOPHILS ABSOLUTE AUTO 0.18 K/mm3 (0.00-0.68); EOSINOPHILS PERCENT AUTO 2 % (0-6); Hematocrit 33.8 % (33.0-51.0); Hemoglobin 11.1 g/dL (11.5-16.0); IMMATURE GRAN ABSOLUTE AUTO 0.03 K/mm3 (0.00-0.10); IMMATURE GRAN PERCENT AUTO 0 % (0-1); LYMPHOCYTES ABSOLUTE AUTO 1.05 K/mm3 (0.84-5.20); LYMPHOCYTES PERCENT AUTO 12 % (21-46); MONOCYTES PERCENT AUTO 11 % (4-13); Mean Corpuscular HGB 29.1 pg (26.0-34.0); Mean Corpuscular HGB Conc 32.8 g/dL (31.5-36.5); Mean Corpuscular Volume 89 fL (80-100); Mean Platelet Volume 10.4 fL (9.1-12.4); NEUTROPHILS ABSOLUTE AUTO 6.44 K/mm3 (1.96-9.15); NEUTROPHILS PERCENT AUTO 74 % (41-73); Platelet Count 330 K/mm3 (150-400); RDW Coefficient Variation 15.3 % (11.7-14.2); RDW Standard Deviation 49.9 fL (35.1-46.3); Red Blood Cell Count 3.82 M/mm3 (3.80-5.20); White Blood Cell Count 8.75 K/mm3 (4.00-11.30)
[2020-08-08 18:41] LABS: Alanine Aminotransfer (ALT/SGP 45 U/L (12-78); Albumin, Blood 3.3 g/dL (3.4-5.0); Albumin/Globulin Ratio 1.2 (0.8-1.8); Alk Phos 146 U/L (50-136); Anion Gap 6 mmol/L (6-16); Aspartate Aminotrans (AST/SGOT 45 U/L (12-37); Bilirubin, Total 0.3 mg/dL (0.1-1.0); Blood Urea Nitrogen 15 mg/dL (8-24); Bun/Creatinine Ratio 21.6 (12.0-20.0); CO2, Blood 21 mmol/L (21-32); Calcium, Blood 8.6 mg/dL (8.5-10.1); Chloride, Blood 111 mmol/L (98-108); Creatinine, Blood 0.69 mg/dL (0.40-1.00); Globulin, Blood 2.8 g/dL (2.2-4.0); Glomerular Filtration Rate >60 (60-); Glucose, Blood 109 mg/dL (70-99); Potassium, Blood 4.3 mmol/L (3.5-5.5); Sodium, Blood 138 mmol/L (136-145); Total Protein, Blood 6.1 g/dL (6.4-8.2)
[2020-08-08 19:57] LABS: Source, Urine Voided
[2020-08-08 20:00] LABS: Bilirubin, Urine Neg (Neg); Blood, Urine Neg (Neg); Glucose Qualitative, Urine Neg (Neg); Ketones, Urine Neg (Neg); Leukocyte Esterase, Urine 1+ (Neg); Nitrite, Urine Pos (Neg); Protein, Urine Neg (Neg); Specific Gravity, Urine 1.015 (1.003-1.022); Urobilinogen, Urine NORM (Normal)
[2020-08-08 20:06] LABS: Appearance, Urine Hazy (Clear); Color, Urine Yellow (P-Yellow)
[2020-08-08 20:13] LABS: Bacteria Many /hpf; Red Blood Cells, Urine Not Seen /hpf (0-2); Squamous Epithelial Cells Few /hpf (Few); White Blood Cells, Urine 0-2 /hpf (0-5)
== END 2020-08-08 20:16 | disposition home or self-care (01) ==
LOC: ER 17:29
PROVIDERS: Emergency Medicine
DX: R41.0 Disorientation, unspecified (principal); Z91.018 Allergy to other foods; Z79.899 Other long term (current) drug therapy; W01.10XA Fall on same level from slipping, tripping and stumbling with subsequent striking against unspecified object, initial encounter
CPT/HCPCS: 36415; 70450; 80053; 81001; 85025; 87077; 87086; 87186; 93005; 93010; 99284-25; J7030

== ENCOUNTER → 2020-09-22 | Outpatient (CLI) | payer MEDICARE, OTHER ==
[2020-09-22 13:47] LABS: BASOPHILS ABSOLUTE AUTO 0.04 K/mm3 (0.00-0.23); BASOPHILS PERCENT AUTO 1 % (0-2); EOSINOPHILS ABSOLUTE AUTO 0.23 K/mm3 (0.00-0.68); EOSINOPHILS PERCENT AUTO 3 % (0-6); Hematocrit 36.6 % (33.0-51.0); IMMATURE GRAN ABSOLUTE AUTO 0.02 K/mm3 (0.00-0.10); IMMATURE GRAN PERCENT AUTO 0 % (0-1); LYMPHOCYTES ABSOLUTE AUTO 1.73 K/mm3 (0.84-5.20); LYMPHOCYTES PERCENT AUTO 24 % (21-46); MONOCYTES ABSOLUTE AUTO 0.95 K/mm3 (0.16-1.47); MONOCYTES PERCENT AUTO 13 % (4-13); Mean Corpuscular HGB 29.1 pg (26.0-34.0); Mean Corpuscular HGB Conc 32.8 g/dL (31.5-36.5); Mean Corpuscular Volume 89 fL (80-100); Mean Platelet Volume 11.4 fL (9.1-12.4); NEUTROPHILS ABSOLUTE AUTO 4.21 K/mm3 (1.96-9.15); NEUTROPHILS PERCENT AUTO 59 % (41-73); Platelet Count 278 K/mm3 (150-400); RDW Coefficient Variation 20.5 % (11.7-14.2); RDW Standard Deviation 66.8 fL (35.1-46.3); Red Blood Cell Count 4.13 M/mm3 (3.80-5.20); White Blood Cell Count 7.18 K/mm3 (4.00-11.30)
[2020-09-22 13:52] LABS: Anion Gap 8 mmol/L (6-16); Blood Urea Nitrogen 13 mg/dL (8-24); Bun/Creatinine Ratio 18.6 (12.0-20.0); CO2, Blood 23 mmol/L (21-32); Calcium, Blood 8.3 mg/dL (8.5-10.1); Chloride, Blood 106 mmol/L (98-108); Glomerular Filtration Rate >60 (60-); Glucose, Blood 84 mg/dL (70-99); Potassium, Blood 3.9 mmol/L (3.5-5.5); Sodium, Blood 137 mmol/L (136-145)
== END | disposition home or self-care (01) ==
LOC: LAB SHORT 13:43 → LAB 13:43
PROVIDERS: Family Medicine
DX: R53.83 Other fatigue (principal)
CPT/HCPCS: 80048; 85025

== ENCOUNTER 2021-04-30 23:04 | Emergency (ER) | payer MEDICARE, OTHER ==
[~2021-04-30] VITALS: Ht 165.1 cm; Wt 51.7 kg
[2021-05-01] MEDS ORDERED: Voltaren100 GM TOP (01:46)
== END 2021-05-01 02:10 | disposition home or self-care (01) ==
LOC: ER 23:04
DX: M19.011 Primary osteoarthritis, right shoulder (principal); I10 Essential (primary) hypertension; Z86.73 Personal history of transient ischemic attack (TIA), and cerebral infarction without residual deficits; Z79.899 Other long term (current) drug therapy; Z88.5 Allergy status to narcotic agent; Z91.018 Allergy to other foods
CPT/HCPCS: 73030; 96372; 99283-25; A9270; J1885

== ENCOUNTER → 2021-06-23 | Outpatient (CLI) | payer MEDICARE, OTHER ==
[~2021-06-23] MED LIST changes: +Voltaren100 GM TOP
[2021-06-23 16:49] LABS: BASOPHILS ABSOLUTE AUTO 0.03 K/mm3 (0.00-0.23); BASOPHILS PERCENT AUTO 1 % (0-2); EOSINOPHILS ABSOLUTE AUTO 0.15 K/mm3 (0.00-0.68); EOSINOPHILS PERCENT AUTO 2 % (0-6); IMMATURE GRAN ABSOLUTE AUTO 0.02 K/mm3 (0.00-0.10); IMMATURE GRAN PERCENT AUTO 0 % (0-1); LYMPHOCYTES ABSOLUTE AUTO 1.37 K/mm3 (0.84-5.20); LYMPHOCYTES PERCENT AUTO 21 % (21-46); MONOCYTES ABSOLUTE AUTO 0.93 K/mm3 (0.16-1.47); MONOCYTES PERCENT AUTO 14 % (4-13); Mean Corpuscular HGB 29.9 pg (26.0-34.0); Mean Corpuscular HGB Conc 34.4 g/dL (31.5-36.5); Mean Corpuscular Volume 87 fL (80-100); Mean Platelet Volume 11.5 fL (9.1-12.4); NEUTROPHILS ABSOLUTE AUTO 3.98 K/mm3 (1.96-9.15); NEUTROPHILS PERCENT AUTO 61 % (41-73); Platelet Count 228 K/mm3 (150-400); RDW Coefficient Variation 19.9 % (11.7-14.2); RDW Standard Deviation 62.4 fL (35.1-46.3); Red Blood Cell Count 3.68 M/mm3 (3.80-5.20); White Blood Cell Count 6.48 K/mm3 (4.00-11.30)
[2021-06-23 17:01] LABS: Albumin, Blood 2.5 g/dL (3.4-5.0); Albumin/Globulin Ratio 0.9 (0.8-1.8); Bilirubin, Total 0.3 mg/dL (0.1-1.0); Bun/Creatinine Ratio 10.3 (12.0-20.0); Calcium, Blood 7.6 mg/dL (8.5-10.1); Creatinine, Blood 0.97 mg/dL (0.40-1.00); Globulin, Blood 2.8 g/dL (2.2-4.0); Potassium, Blood 3.6 mmol/L (3.5-5.5); Total Protein, Blood 5.3 g/dL (6.4-8.2)
[2021-06-23 20:49] LABS: Campylobacter Sp Not Detected (NOT DETECT)
[2021-06-23 20:50] LABS: Adenovirus F 40/41 Not Detected (NOT DETECT); Astrovirus Not Detected (NOT DETECT); Cryptosporidium Not Detected (NOT DETECT); Cyclospora Cayetanensis Not Detected (NOT DETECT); E. Coli O157 Not Detected (NOT DETECT); Entamoeba Histolytica Not Detected (NOT DETECT); Enteroaggregative E. coli-EAEC Not Detected (NOT DETECT); Enteropathogenic E. coli-EPEC Not Detected (NOT DETECT); Enterotoxigenic E. coli-ETEC Not Detected (NOT DETECT); Giardia Lamblia Not Detected (NOT DETECT); Norovirus GI/GII Not Detected (NOT DETECT); Plesiomonas Shigelloides Not Detected (NOT DETECT); Rotavirus A Not Detected (NOT DETECT); Salmonella Sp Not Detected (NOT DETECT); Sapovirus Not Detected (NOT DETECT); Shiga Toxin-prod E. coli-STEC Not Detected (NOT DETECT); Shigella/Enteroin E. coli-EIEC Not Detected (NOT DETECT); Vibrio Cholerae Not Detected (NOT DETECT); Vibrio Sp Not Detected (NOT DETECT); Yersinia Enterocolitica Not Detected (NOT DETECT)
== END | disposition home or self-care (01) ==
LOC: LAB SHORT 16:46
PROVIDERS: Physician Assistant
DX: R19.7 Diarrhea, unspecified (principal)
CPT/HCPCS: 80053; 85025; 87507

== ENCOUNTER → 2021-06-30 | Outpatient (CLI) | payer MEDICARE, OTHER ==
[2021-06-30 14:05] LABS: Bun/Creatinine Ratio 15.3 (12.0-20.0); Calcium, Blood 7.9 mg/dL (8.5-10.1); Creatinine, Blood 0.98 mg/dL (0.40-1.00); Potassium, Blood 4.3 mmol/L (3.5-5.5); Thyroid Stimulating Hormone 5.026 uIU/mL (0.360-4.800)
[2021-06-30 15:22] LABS: Free Thyroxine 1.04 ng/dL (0.70-1.60)
== END | disposition home or self-care (01) ==
LOC: LAB SHORT 13:41
PROVIDERS: Chiropractor
DX: R60.0 Localized edema (principal); R53.83 Other fatigue
CPT/HCPCS: 80048; 83880; 84439; 84443; 87077; 87086; 87186

== ENCOUNTER 2021-07-14 08:06 | Emergency (ER) | payer MEDICARE, OTHER ==
[~2021-07-14] VITALS: Ht 165.1 cm; Wt 47.6 kg
[2021-07-14 08:51] LABS: BASOPHILS ABSOLUTE AUTO 0.05 K/mm3 (0.00-0.23); BASOPHILS PERCENT AUTO 1 % (0-2); EOSINOPHILS ABSOLUTE AUTO 0.28 K/mm3 (0.00-0.68); EOSINOPHILS PERCENT AUTO 3 % (0-6); Hematocrit 36.3 % (33.0-51.0); Hemoglobin 12.4 g/dL (11.5-16.0); IMMATURE GRAN ABSOLUTE AUTO 0.03 K/mm3 (0.00-0.10); IMMATURE GRAN PERCENT AUTO 0 % (0-1); LYMPHOCYTES ABSOLUTE AUTO 1.78 K/mm3 (0.84-5.20); LYMPHOCYTES PERCENT AUTO 19 % (21-46); MONOCYTES ABSOLUTE AUTO 1.17 K/mm3 (0.16-1.47); MONOCYTES PERCENT AUTO 13 % (4-13); Mean Corpuscular HGB 30.4 pg (26.0-34.0); Mean Corpuscular HGB Conc 34.2 g/dL (31.5-36.5); Mean Corpuscular Volume 89 fL (80-100); Mean Platelet Volume 11.6 fL (9.1-12.4); NEUTROPHILS ABSOLUTE AUTO 5.94 K/mm3 (1.96-9.15); NEUTROPHILS PERCENT AUTO 64 % (41-73); Platelet Count 297 K/mm3 (150-400); RDW Coefficient Variation 20.2 % (11.7-14.2); RDW Standard Deviation 65.1 fL (35.1-46.3); Red Blood Cell Count 4.08 M/mm3 (3.80-5.20); White Blood Cell Count 9.25 K/mm3 (4.00-11.30)
[2021-07-14 09:03] LABS: Alanine Aminotransfer (ALT/SGP 43 U/L (12-78); Albumin, Blood 2.6 g/dL (3.4-5.0); Albumin/Globulin Ratio 0.8 (0.8-1.8); Alk Phos 160 U/L (50-136); Anion Gap 5 mmol/L (6-16); Aspartate Aminotrans (AST/SGOT 51 U/L (12-37); Bilirubin, Total 0.6 mg/dL (0.1-1.0); Blood Urea Nitrogen 19 mg/dL (8-24); Bun/Creatinine Ratio 21.6 (12.0-20.0); CO2, Blood 31 mmol/L (21-32); Calcium, Blood 7.9 mg/dL (8.5-10.1); Chloride, Blood 98 mmol/L (98-108); Creatinine, Blood 0.88 mg/dL (0.40-1.00); Globulin, Blood 3.4 g/dL (2.2-4.0); Glomerular Filtration Rate >60 (60-); Glucose, Blood 96 mg/dL (70-99); Potassium, Blood 4.3 mmol/L (3.5-5.5); Sodium, Blood 134 mmol/L (136-145)
== END 2021-07-14 10:13 | disposition home or self-care (01) ==
LOC: ER 08:06
PROVIDERS: Physician Assistant
DX: G45.9 Transient cerebral ischemic attack, unspecified (principal); I11.9 Hypertensive heart disease without heart failure; Z88.5 Allergy status to narcotic agent; Z91.018 Allergy to other foods; Z79.899 Other long term (current) drug therapy
CPT/HCPCS: 36415; 71045; 80053; 83690; 85025

== ENCOUNTER → 2022-01-09 | Outpatient (CLI) | payer MEDICARE, OTHER ==
[~2022-01-09] MED LIST changes: +AMOCLA875 PO; +AZIT250 PO
[2022-01-11 09:46] LABS: C DIFFICILE DNA NEGATIVE (Negative)
== END | disposition home or self-care (01) ==
LOC: LAB SHORT 13:54 → LAB 13:54
PROVIDERS: Physician Assistant
DX: K90.0 Celiac disease (principal); R19.7 Diarrhea, unspecified; R63.4 Abnormal weight loss
CPT/HCPCS: 87015; 87045; 87046; 87205; 87328; 87493; 87899

== ENCOUNTER → 2022-01-10 | Outpatient (CLI) | payer MEDICARE, OTHER | LOC: LAB 14:04 → LAB SHORT 14:04 | DX: R19.7 Diarrhea, unspecified (principal); K90.0 Celiac disease; R63.4 Abnormal weight loss | CPT/HCPCS: 87177; 87209 ==

== ENCOUNTER 2022-11-06 14:13 | Inpatient (IN) | payer MEDICARE, OTHER ==
[~2022-11-06] VITALS: Ht 149.9 cm; Wt 44.0 kg
[2022-11-06 15:03] LABS: BASOPHILS ABSOLUTE AUTO 0.03 K/mm3 (0.00-0.23); BASOPHILS PERCENT AUTO 0 % (0-2); EOSINOPHILS ABSOLUTE AUTO 0.03 K/mm3 (0.00-0.68); EOSINOPHILS PERCENT AUTO 0 % (0-6); Hematocrit 36.5 % (33.0-51.0); Hemoglobin 12.5 g/dL (11.5-16.0); IMMATURE GRAN ABSOLUTE AUTO 0.03 K/mm3 (0.00-0.10); IMMATURE GRAN PERCENT AUTO 0 % (0-1); LYMPHOCYTES ABSOLUTE AUTO 1.08 K/mm3 (0.84-5.20); LYMPHOCYTES PERCENT AUTO 10 % (21-46); MONOCYTES ABSOLUTE AUTO 0.96 K/mm3 (0.16-1.47); MONOCYTES PERCENT AUTO 9 % (4-13); Mean Corpuscular HGB 31.3 pg (26.0-34.0); Mean Corpuscular HGB Conc 34.2 g/dL (31.5-36.5); Mean Corpuscular Volume 92 fL (80-100); Mean Platelet Volume 11.2 fL (9.1-12.4); NEUTROPHILS ABSOLUTE AUTO 8.28 K/mm3 (1.96-9.15); NEUTROPHILS PERCENT AUTO 80 % (41-73); NRBC ABSOLUTE 0.02 K/mm3 (0.00-0.02); NRBC Auto 0.2 /100 WBC (0.0-0.2); Platelet Count 223 K/mm3 (150-400); RDW Coefficient Variation 14.5 % (11.7-14.2); RDW Standard Deviation 48.7 fL (35.1-46.3); Red Blood Cell Count 3.99 M/mm3 (3.80-5.20); White Blood Cell Count 10.41 K/mm3 (4.00-11.30)
[2022-11-06 15:14] LABS: Albumin, Blood 2.9 g/dL (3.4-5.0); Albumin/Globulin Ratio 1.1 (0.8-1.8); Bilirubin, Total 0.4 mg/dL (0.1-1.0); Bun/Creatinine Ratio 22.5 (12.0-20.0); Calcium, Blood 8.6 mg/dL (8.5-10.1); Creatinine, Blood 0.93 mg/dL (0.40-1.00); Globulin, Blood 2.7 g/dL (2.2-4.0); Potassium, Blood 4.6 mmol/L (3.5-5.5); Total Protein, Blood 5.6 g/dL (6.4-8.2)
[2022-11-06 15:20] LABS: International Normalized Ratio 1.03; Prothrombin Time Results 10.8 Sec (9.7-11.5)
[2022-11-06 16:30] LABS: Source, Urine Straight Cath
[2022-11-06 16:33] LABS: Appearance, Urine Hazy (Clear); Bilirubin, Urine Neg (Neg); Blood, Urine 1+ (Neg); Color, Urine Yellow (P-Yellow); Glucose Qualitative, Urine Neg (Neg); Ketones, Urine Neg (Neg); Leukocyte Esterase, Urine 3+ (Neg); Nitrite, Urine Pos (Neg); Protein, Urine 2+ (Neg); Specific Gravity, Urine 1.015 (1.003-1.022); Urobilinogen, Urine NORM (Normal)
[2022-11-06 16:51] LABS: Bacteria Many /hpf; Red Blood Cells, Urine 0-2 /hpf (0-2); Squamous Epithelial Cells Rare /hpf (Few); Transitional Epithelial Cells Rare /hpf (0-Rare); White Blood Cells, Urine 50-100 /hpf (0-5)
[2022-11-06] MEDS ORDERED: ATOR20 PO (17:23)
[2022-11-06] MEDS ORDERED: TORS10 PO (17:23)
[2022-11-06] MEDS ORDERED: CREON DR 24,001 EACH PO (17:24)
[2022-11-06] MEDS ORDERED: KLOR-CON 1010 ME9 PO (17:24)
[2022-11-06 20:26] VITALS: BP 107/79
[2022-11-07 02:19] VITALS: BP 107/42
[2022-11-07 05:40] LABS: Albumin, Blood 2.2 g/dL (3.4-5.0); Bilirubin, Total 0.3 mg/dL (0.1-1.0); Bun/Creatinine Ratio 21.9 (12.0-20.0); Calcium, Blood 7.9 mg/dL (8.5-10.1); Creatinine, Blood 0.92 mg/dL (0.40-1.00); Globulin, Blood 2.2 g/dL (2.2-4.0); Potassium, Blood 4.1 mmol/L (3.5-5.5); Total Protein, Blood 4.4 g/dL (6.4-8.2)
[2022-11-07 06:37] LABS: BASOPHILS ABSOLUTE AUTO 0.03 K/mm3 (0.00-0.23); BASOPHILS PERCENT AUTO 0 % (0-2); EOSINOPHILS ABSOLUTE AUTO 0.05 K/mm3 (0.00-0.68); EOSINOPHILS PERCENT AUTO 1 % (0-6); Hematocrit 30.6 % (33.0-51.0); Hemoglobin 10.8 g/dL (11.5-16.0); IMMATURE GRAN ABSOLUTE AUTO 0.04 K/mm3 (0.00-0.10); IMMATURE GRAN PERCENT AUTO 0 % (0-1); LYMPHOCYTES ABSOLUTE AUTO 0.95 K/mm3 (0.84-5.20); LYMPHOCYTES PERCENT AUTO 10 % (21-46); MONOCYTES ABSOLUTE AUTO 0.92 K/mm3 (0.16-1.47); MONOCYTES PERCENT AUTO 9 % (4-13); Mean Corpuscular HGB 31.8 pg (26.0-34.0); Mean Corpuscular HGB Conc 35.3 g/dL (31.5-36.5); Mean Corpuscular Volume 90 fL (80-100); Mean Platelet Volume 11.4 fL (9.1-12.4); NEUTROPHILS ABSOLUTE AUTO 7.81 K/mm3 (1.96-9.15); NEUTROPHILS PERCENT AUTO 80 % (41-73); Platelet Count 192 K/mm3 (150-400); RDW Coefficient Variation 14.4 % (11.7-14.2); RDW Standard Deviation 47.2 fL (35.1-46.3)
[2022-11-07 08:42] VITALS: BP 104/57
[2022-11-07 16:28] VITALS: BP 100/51
--- NOTE | 2022-11-07 17:17 | NUR ---
SHIFT SUMMARY: Pt awake and alert to date/self. Episodes of confusion. Gen weakness, can pivot some from chair to bed. Bed alarm on, sister at bedside. Resp even nonlabored on RA. Cpap/cont pulse ox set up for sleep by RT. Purewick in place. No BM this shift. All ext elevated. Pain and safety maintained. Will continue to monitor.
[2022-11-07 20:07] VITALS: BP 111/57
--- NOTE | 2022-11-08 02:04 | NUR ---
PT ARRIVED TO ROOM 350 AT 1345. PT IS CONFUSED AND POSE IS IN PLACE. WILL CONTINUE TO MONITOR. REPORT GIVEN PRIOR TO PT'S ARRIVAL.
--- NOTE | 2022-11-08 04:24 | NUR ---
PT AOX2 WITH CONFUSION.PT WAS MORE IRRITATED WHEN SHE ARRIVED. ONCE PT WAS SETTLED INTO HER BED AND A NEW WARM BLANKET WRAPPED UP ON HER SHE SETTLED DOWN.PT DID HAVE SOME INCONTENCE AND WAS TWO PERSON TO BEDSIDE COMMODE. PT DID WELL BEING DIRECTED BACK TO HER BED. BED ALARM IS IN PLACE WILL CONTINUE TO MONITOR.
[2022-11-08 04:32] VITALS: BP 132/69
[2022-11-08 07:21] VITALS: BP 118/49
[2022-11-08 16:13] VITALS: BP 110/51
--- NOTE | 2022-11-08 16:43 | NUR ---
PT LLE EDEMATOUS AND WEEPING. LUE IS ALSO SWOLLEN. OUTPUT OF URINE 200ML AND [address] SC[address] TORRES NOTIFIED. WILL BE AT BEDSIDE SHORTLY.
--- NOTE | 2022-11-08 16:52 | NUR ---
PT IS ALERT AND ORIENTED X2-3. APPEARS TO BE RESTING COMFORTABLY IN BED. SISTER IS AT BEDSIDE. PT EXTREMITIES ARE EDEMATOUS AND WEEPING. SHE REPORTS FEELING BETTER OVERALL. NO MUCH PO INTAKE. PT/OT INVOLVED. DENIES CHEST PAIN AND SOB. BED IS IN THE LOWEST POSITION WITH CALL LIGHT IN REACH. ABLE TO MAKE NEEDS KNOWN
--- NOTE | 2022-11-08 17:47 | NUR ---
DR. TORRES AT BEDSIDE. PER MD, NO IV ACCESS NEEDED. D/C IV ANTIBIOTICS AND START PO ANTIBIOTICS.
[2022-11-08 21:26] VITALS: BP 110/62
--- NOTE | 2022-11-09 04:09 | NUR ---
END OF SHIFT SUMMARY PT IS A&O X2-3. PLEASANT AND COOPERATIVE WITH CARE. USES BEDSIDE COMMODE USING 2 NURSE ASSIST DUE TO EXTREME WEAKNESS. PT ON CPAP WHILE ASLEEP AND SLEPT MOST OF THE NIGHT. 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 PT HAD EDEMATOUS EXTREMITIES THAT WHEEP. KEPT LEGS ELEVATED WITH PILLOWS AND FLOATED THE HEELS. HANDS AND FEET CYANOTIC AT TIMES AND COLD TO THE TOUCH, PT AND FAMILY STATE THIS IS HER NORMAL. MEPILEX ON LOWER SPINE IN PLACE. SISTER AND FRIEND AT BEDSIDE AT BEGINNING OF SHIFT AND FRIEND STAYED THE NIGHT WITH PATIENT. BED IN LOWEST POSITION WITH CALL LIGHT IN REACH.
[2022-11-09 04:27] VITALS: BP 114/63
[2022-11-09 07:27] VITALS: BP 95/51
--- NOTE | 2022-11-09 18:02 | NUR ---
Made a visit to pt, she appears to be asleep with bipap mask in place. Sister Veronica at the bedside. We discussed Code Status, and Veronica states she and the pt both have blank POLSTS sitting at home, and they had been planning to fill them out with a friend who helps with "medical papers", and she states the friend recently left pt's room to go home, but will be back tomorrow. Will attempt to work with pt and friend tomorrow when she returns.
--- NOTE | 2022-11-09 18:34 | NUR ---
SUMMARY- PT A/O X3. FAMILY AND STAFF STATE PT HAS MORE WEAKNESS AND IS MORE SLEEPY TODAY THAN YESTERDAY. PT IS 2 MAX GAIT BELT TX TO BSC, SLOW, AFRAID TO FALL, RIGID AND UNCOORDINATED. VOIDING SMALL AMOUNTS. DIET CHANGED TO PUREE, PT WAS ASPIRATING ON REG CONSISTANCY FOOD, DR TORRES AGREED TO PLACE PT ON PUREE'S, NO SPEECH EVAL ORDERED. PT DOING GOOD WITH PUREE CONSISTANCY. EATING ABOUT 50% OF MEALS AND SM AMOUNTS OF CLEAR LIQ. CONT PULSE OX PT MAINTAINS 93-96% ROOM AIR. PLACED CPAP FOR A FEW HOURS DURING NAP THIS AFTERNOON. SISTER AT BEDSIDE ALL OF SHIFT INVOLVED IN CARE. PLAN FOR SNF TOMORROW. PT SAT UP IN CHAIR ALL MORNING BUT SLEPT IN CHAIR. SLEPT 90% OF THE DAY. VERY TIRED. PALLIATIVE ORDERED, PT SLEEPING AND SISTER NOT COMFORTABLE MAKING DECISIONS WITHOUT FRIEND AND SISTERS INPUT. WILL REPORT TO SHEILA DELONG
[2022-11-09 20:16] VITALS: BP 98/46
[2022-11-10 02:54] VITALS: BP 104/63
--- NOTE | 2022-11-10 04:17 | NUR ---
SHIFT SUMMARY PT A&O X2-3, HOWEVER PT SLEEPY MUCH OF THE SHIFT AND SLEPT MOST OF THE NIGHT, CPAP APPLIED DURING SLEEP TIMES. PATIENT UP TO BEDSIDE COMMODE WITH 2 PERSON ASSIST DUE TO WEAKNESS. PT IS VERY PLEASANT AND COOPERATIVE WITH CARE. SISTER AT BEDSIDE AT BEGINNING OF SHIFT WITH FAMILY FRIEND "DAMIAN" WHO STAYED THE NIGHT WITH PATIENT. PATIENT EXTREMETIES STILL EDEMATOUS WITH WHEEPING COMING FROM RIGHT ARM AND LEFT LEG, FLOATED WITH PILLOWS. PT TOLERATED TAKING PILLS CRUSHED IN APPLESAUCE. BED KEPT IN LOWEST POSITION WITH CALL LIGHT WITHIN REACH.
[2022-11-10 05:49] LABS: BASOPHILS ABSOLUTE AUTO 0.01 K/mm3 (0.00-0.23); BASOPHILS PERCENT AUTO 0 % (0-2); EOSINOPHILS ABSOLUTE AUTO 0.02 K/mm3 (0.00-0.68); EOSINOPHILS PERCENT AUTO 0 % (0-6); Hematocrit 26.4 % (33.0-51.0); Hemoglobin 9.4 g/dL (11.5-16.0); IMMATURE GRAN ABSOLUTE AUTO 0.03 K/mm3 (0.00-0.10); IMMATURE GRAN PERCENT AUTO 0 % (0-1); LYMPHOCYTES ABSOLUTE AUTO 1.25 K/mm3 (0.84-5.20); LYMPHOCYTES PERCENT AUTO 12 % (21-46); MONOCYTES ABSOLUTE AUTO 0.76 K/mm3 (0.16-1.47); MONOCYTES PERCENT AUTO 7 % (4-13); Mean Corpuscular HGB 31.5 pg (26.0-34.0); Mean Corpuscular HGB Conc 35.6 g/dL (31.5-36.5); Mean Corpuscular Volume 89 fL (80-100); Mean Platelet Volume 10.9 fL (9.1-12.4); NEUTROPHILS ABSOLUTE AUTO 8.26 K/mm3 (1.96-9.15); NEUTROPHILS PERCENT AUTO 80 % (41-73); Platelet Count 156 K/mm3 (150-400); RDW Coefficient Variation 14.5 % (11.7-14.2); RDW Standard Deviation 46.3 fL (35.1-46.3); Red Blood Cell Count 2.98 M/mm3 (3.80-5.20); White Blood Cell Count 10.33 K/mm3 (4.00-11.30)
[2022-11-10 06:14] LABS: Albumin, Blood 2.1 g/dL (3.4-5.0); Anion Gap 10 mmol/L (6-16); Blood Urea Nitrogen 25 mg/dL (8-24); Bun/Creatinine Ratio 17.9 (12.0-20.0); CO2, Blood 20 mmol/L (21-32); Calcium, Blood 7.9 mg/dL (8.5-10.1); Chloride, Blood 105 mmol/L (98-108); Glomerular Filtration Rate 37 (60-); Glucose, Blood 108 mg/dL (70-99); Magnesium, Blood 1.9 mg/dL (1.6-2.4); Phosphorus, Blood 3.6 mg/dL (2.5-4.9); Potassium, Blood 3.9 mmol/L (3.5-5.5); Sodium, Blood 135 mmol/L (136-145)
[2022-11-10 07:13] VITALS: BP 132/58
--- NOTE | 2022-11-10 14:10 | NUR ---
Met with pt and her sister, along with their friend AnabelleCee BLACKMAN updated, pt was barely able to stay awake for the discussion; at times needing to be awoken and re-explain conversation. She was able to make her wishes of DNR known, but also states she would be willing to have a 3 day trial on ventilation if needed, but no longer. This was written onto the POLST. Dr. Ngo signed it, and a copy was sent to medical records and to the [place] [facility]. Pt's sister Ladi states she has been pushing for the pt to go to rehab, as she "wants her to get well", while the pt generally goes along with sister Ladi. We did sit down together outside of pt's room this morning and have an in-depth discussion about pt's overall prognosis, and Ladi began to cry, stated their last remaining brother just recently. She asked for more information about caring for a loved one at home with hospice. I gave her a brochure and some other literature. They are currently waiting to see if she is a candidate for rehab. Palliative Care will remain involved and avaiable.
[2022-11-10 16:24] VITALS: BP 92/41
[2022-11-10 19:53] VITALS: BP 104/37
--- NOTE | 2022-11-10 20:03 | NUR ---
SUMMARY- PT A/O X3. PT IS WEAK AND ABLE TO GET UP TO BSC 2 PERSON MAX ASSIST WITH GAIT BELT. STIFF, RIGID AND SLOW. PT TOLERATING PUREE DIET TODAY, NO ASPIRATION OR COUGHING NOTED. WORKED WITH PHYSICAL THERAPY AND AMBLATED IN A [place] WITH WALKER WHICH IS GREAT PROGRESS FROM THE MORNING. PT IS FEEDING HERSELF TODAY, SISTER FED HER ALL DAY YESTERDAY. PT IS SLEEPING LESS TODAY AND MORE ALERT. REPORTED TO NOC RN
--- NOTE | 2022-11-11 04:55 | NUR ---
SHIFT SUMMARY PATIENT ALERT, PLEASANT AFFECT. DENIES PAIN NOR DISCOMFORT. FRIEND AT BEDSIDE, SUPPORTIVE. REQUIRES 2 MAX ASSIST WITH CARES/TRANSFERS. NO ACUTE CHANGES NOTED OVERNIGHT. BED LOCKED AND IN LOW POSITION WITH HOB ELEVATED FOR COMFORT, CALL LIGHT WITHIN REACH.
[2022-11-11 05:25] VITALS: BP 112/52
[2022-11-11 06:31] LABS: Albumin, Blood 1.9 g/dL (3.4-5.0); Anion Gap 8 mmol/L (6-16); Blood Urea Nitrogen 23 mg/dL (8-24); Bun/Creatinine Ratio 18.9 (12.0-20.0); CO2, Blood 20 mmol/L (21-32); Calcium, Blood 7.7 mg/dL (8.5-10.1); Chloride, Blood 107 mmol/L (98-108); Creatinine, Blood 1.22 mg/dL (0.40-1.00); Glomerular Filtration Rate 44 (60-); Glucose, Blood 136 mg/dL (70-99); Phosphorus, Blood 2.6 mg/dL (2.5-4.9); Sodium, Blood 135 mmol/L (136-145)
[2022-11-11 06:35] LABS: BASOPHILS ABSOLUTE AUTO 0.01 K/mm3 (0.00-0.23); BASOPHILS PERCENT AUTO 0 % (0-2); EOSINOPHILS ABSOLUTE AUTO 0.06 K/mm3 (0.00-0.68); EOSINOPHILS PERCENT AUTO 1 % (0-6); Hematocrit 23.4 % (33.0-51.0); Hemoglobin 8.5 g/dL (11.5-16.0); IMMATURE GRAN ABSOLUTE AUTO 0.04 K/mm3 (0.00-0.10); IMMATURE GRAN PERCENT AUTO 1 % (0-1); LYMPHOCYTES ABSOLUTE AUTO 0.88 K/mm3 (0.84-5.20); LYMPHOCYTES PERCENT AUTO 13 % (21-46); MONOCYTES ABSOLUTE AUTO 0.54 K/mm3 (0.16-1.47); MONOCYTES PERCENT AUTO 8 % (4-13); Mean Corpuscular HGB 31.8 pg (26.0-34.0); Mean Corpuscular HGB Conc 36.3 g/dL (31.5-36.5); Mean Corpuscular Volume 88 fL (80-100); Mean Platelet Volume 12.1 fL (9.1-12.4); NEUTROPHILS ABSOLUTE AUTO 5.36 K/mm3 (1.96-9.15); NEUTROPHILS PERCENT AUTO 78 % (41-73); NRBC ABSOLUTE 0.03 K/mm3 (0.00-0.02); NRBC Auto 0.4 /100 WBC (0.0-0.2); Platelet Count 93 K/mm3 (150-400); RDW Coefficient Variation 14.6 % (11.7-14.2); RDW Standard Deviation 45.9 fL (35.1-46.3); Red Blood Cell Count 2.67 M/mm3 (3.80-5.20); White Blood Cell Count 6.89 K/mm3 (4.00-11.30)
[2022-11-11 07:35] VITALS: BP 127/48
[2022-11-11 11:18] LABS: Influenza A, PCR NEGATIVE (NEGATIVE); Influenza B, PCR NEGATIVE (NEGATIVE); Resp Syncytial Virus, PCR NEGATIVE (NEGATIVE); SARS-Cov-2 (COVID-19) PCR, MMC NEGATIVE (NEGATIVE)
[2022-11-11] MEDS ORDERED: ONDA4 PO (12:18)
[2022-11-11] MEDS ORDERED: BACTRIM 400-801 EACH PO (12:24)
--- NOTE | 2022-11-11 15:06 | NUR ---
DC TO [facility] PT DC'D TO [facility] VIA [facility] TRANSPORT VIA [facility]. REPORT CALLED TO ABBY RN. ALL PERSONAL BELONGINGS SENT WITH PT. NO IV TO DC. DC PKT SENT WITH TRANSPORT PERSONNEL.
== END 2022-11-11 15:00 | DRG 689 ==
LOC: ER 14:13 → MEDS 14:14 → ENPENDDIS 11-11 11:31 → MEDS 11-11 15:00
PROVIDERS: Family Medicine; Student in an Organized Health Care Education/Training Program; ADMIT Internal Medicine
PROC: 5A09357 Assistance with Respiratory Ventilation, Less than 24 Consecutive Hours, Continuous Positive Airway Pressure (ICD-10-PCS; principal; 2022-11-10)
DX: N39.0 Urinary tract infection, site not specified (principal); G93.41 Metabolic encephalopathy; I50.33 Acute on chronic diastolic (congestive) heart failure; E87.20 Acidosis, unspecified; I47.1 Supraventricular tachycardia; I11.0 Hypertensive heart disease with heart failure; K90.0 Celiac disease; E78.5 Hyperlipidemia, unspecified; Z86.73 Personal history of transient ischemic attack (TIA), and cerebral infarction without residual deficits; Z98.84 Bariatric surgery status; K21.9 Gastro-esophageal reflux disease without esophagitis; I35.0 Nonrheumatic aortic (valve) stenosis; M06.9 Rheumatoid arthritis, unspecified; M19.90 Unspecified osteoarthritis, unspecified site; D64.9 Anemia, unspecified; I27.20 Pulmonary hypertension, unspecified; Z87.19 Personal history of other diseases of the digestive system; Z20.822 Contact with and (suspected) exposure to COVID-19; B96.20 Unspecified Escherichia coli [E. coli] as the cause of diseases classified elsewhere; R23.0 Cyanosis; Z88.5 Allergy status to narcotic agent; Z88.8 Allergy status to other drugs, medicaments and biological substances; Z91.018 Allergy to other foods; Z79.899 Other long term (current) drug therapy; Z87.11 Personal history of peptic ulcer disease; Z79.2 Long term (current) use of antibiotics; Z90.710 Acquired absence of both cervix and uterus; Z90.49 Acquired absence of other specified parts of digestive tract; Z98.890 Other specified postprocedural states
CPT/HCPCS: 0241U; 36415; 51701; 70450; 71045; 80053; 80069; 81001; 83605; 83735; 83880; 84145; 84484; 85025; 85610; 87040; 87077; 87086; 87186; 93005; 93010; 94660; 94762; 96365-59; 96366-59; 96372; 97110; 97116; 97161; 97165; 97530; 97535; 99285-25; A9270; G0378; J0696; J1650